=== PATIENT | male | born 1945 | race Caucasian/White ===

== ENCOUNTER 2020-02-17 08:05 | Day surgery (SDC) | payer BC, MEDICARE ==
[2020-02-17 09:17] LABS: INTERNATIONAL RATION (INR) 1.09; PARTIAL THROMBOPLASTIN TIME 29.4 SEC (23.5-35.8); PROTHROMBIN TIME 14.3 SEC (11.4-15.4)
[2020-02-17 13:44] VITALS: BP 133/67
--- NOTE | 2020-02-17 15:20 | RADIOLOGY REPORT (SQ) ---
EXAM DESCRIPTION: MYELOGRAM LUMBAR; CT LUMBAR SPINE WITH IMAGES COMPLETED DATE/TIME: 02/17/2020 10:49 am; 02/17/2020 10:55 am REASON FOR STUDY: CHRONIC RIGHT-SIDED LOW BACK PAIN WITH RIGHT-SIDED SCIATICA(M54.41) M54.41 LUMBAG O WITH SCIATICA, RIGHT SIDE COMPARISON: None. FLUOROSCOPY TIME: 1.4 minutes 15 images saved to PACS. TECHNIQUE: Fluoroscopic guided lumbar myelogram. LIMITATIONS: None. PROCEDURE: After written consent and assessment were obtained, the patient was brought into the fluo roscopy room and placed prone on the table. The patient's lower back was prepped in a sterile fashio n and an entry site was selected under live fluoroscopic guidance. The entry site was anesthetized wi th 1% lidocaine. The spinal needle was advanced through the skin and into the thecal sac at the level of L3-4. Contrast was injected into the thecal sac. Following the procedure the needle was removed and a sterile bandage was placed of the site. CONTRAST: 15 mL Omnipaque 180. IMAGES ACQUIRED: 15 TECHNIQUE: After performing lumbar myelogram, axial images were acquired through the lumbar spine wi thout intravenous contrast. Images reviewed with lung, soft tissue and bone windows. Reconstructed coronal and sagittal MPR images reviewed. All images stored on PACS. All CT scanners at this facility use dose modulation, iterative reconstruction, and/or weight based d osing when appropriate to reduce radiation dose to as low as reasonably achievable (ALARA). [facility]: Dose Right [facility]: CareDose [facility]: Dose Right [facility]: Teradose 4D [facility]: Domainex FINDINGS: SEGMENTATION: Normal. No transitional anatomy. ALIGNMENT: Moderate convex left scoliosis. VERTEBRAL BODIES: No fractures. No dislocation. No acute findings. HARDWARE: None in the spine. DISCS: L1-L2: No significant protrusions. No significant stenosis. L2-L3: Vacuum disc. Mild spinal stenosis. L3-L4: Vacuum disc. Moderate spinal stenosis. Facet arthropathy. L4-L5: Moderate spinal stenosis. Facet arthropathy. L5-S1: No significant protrusions. No significant stenosis. Facet arthropathy. PEDICLES, TRANSVERSE PROCESSES: No fractures. No dislocation. No acute findings. FACETS, POSTERIOR ELEMENTS: No fractures. No dislocation. No spinal stenosis. VISUALIZED RIBS: No fractures. SOFT TISSUES: No significant or acute finding in adjacent soft tissues. OTHER: No other significant finding. IMPRESSION: Spondylosis, facet arthropathy and malalignment. Moderate spinal stenosis L3-4 and L4-5 . COMMENT: Patient medication list reviewed: Yes- Quality ID# [id number]:Eligible professional attests to doc umenting in the medical record they obtained, updated, or reviewed the patient's current medications. TECHNICAL DOCUMENTATION: JOB ID: [id number] Quality ID # [id number]: Final reports with documentation of one or more dose reduction techniques (e.g., Au tomated exposure control, adjustment of the mA and/or kV according to patient size, use of iterative reconstruction technique) 2010 [employer]- All Rights Reserved Reading location - IP/workstation name: [email or web address]
--- NOTE | 2020-02-17 19:20 | EKG REPORT ---
SEVERITY:- ABNORMAL ECG - ATRIAL FIBRILLATION RBBB AND LAFB PROBABLE LEFT VENTRICULAR HYPERTROPHY : Confirmed by: Karen Gardner MD 17-Feb-2020 19:20:16
== END 2020-02-17 13:30 | disposition home or self-care (01) ==
LOC: RAD 08:05
PROVIDERS: ATTEND Physician Assistant
DX: M54.41 Lumbago with sciatica, right side (principal); M47.816 Spondylosis without myelopathy or radiculopathy, lumbar region; M48.061 Spinal stenosis, lumbar region without neurogenic claudication; G89.29 Other chronic pain; M79.604 Pain in right leg; W01.0XXA Fall on same level from slipping, tripping and stumbling without subsequent striking against object, initial encounter; Z95.810 Presence of automatic (implantable) cardiac defibrillator
CPT/HCPCS: 36415; 72132; 72265; 85610; 85730; 93005; 93010